=== PATIENT | female | born 1955 | race Two or more races ===

== ENCOUNTER 2022-12-26 06:56 | Day surgery (SDC) | payer OTHER ==
[~2022-12-26] VITALS: Ht 162.6 cm; Wt 73.0 kg
== END 2022-12-26 22:15 | disposition home or self-care (01) ==
LOC: CIR.AMB 06:56
PROVIDERS: ATTEND Surgery
DX: D05.12 Intraductal carcinoma in situ of left breast (principal); R59.0 Localized enlarged lymph nodes; Z20.822 Contact with and (suspected) exposure to COVID-19
CPT/HCPCS: 19285; 19301; 38525; A9541; L8699